=== PATIENT | female | born 1950 | race Caucasian/White ===

== ENCOUNTER 2025-01-28 08:19 | Day surgery (SDC) | payer MEDICARE, OTHER ==
[~2025-01-28 08:19] MED LIST: Propofol 200 MG/20 ML SDV ONE; fentaNYL 50 MCG/ML SDV ONE
[2025-01-28] MEDS: Lactated Ringers 1,000 ML IV SCH (09:15)
== END 2025-01-28 10:37 | disposition home or self-care (01) ==
LOC: JP.SDS 08:19
PROVIDERS: ATTEND Surgery
DX: K29.50 Unspecified chronic gastritis without bleeding (principal); I10 Essential (primary) hypertension
CPT/HCPCS: 00731; 43239; J2704; J3010; J7120; 88305